=== PATIENT | male | born 1940 | race Caucasian/White ===

== ENCOUNTER 2020-12-05 10:57 | Day surgery (SDC) | payer BC ==
[2020-12-04 10:11] LABS: BASOPHILS % (AUTO) 0.8 % (0-1); EOSINOPHILS # (AUTO) 0.1 X10'3 (0-0.9); EOSINOPHILS % (AUTO) 1.8 % (0-6); HEMATOCRIT 38.7 % (42.0-52.0); HEMOGLOBIN 13.1 g/dl (14.0-17.9); LYMPHOCYTES # (AUTO) 1.2 X10'3 (1.1-4.8); LYMPHOCYTES % (AUTO) 21.1 % (21-51); MEAN CORPUSCULAR HEMOGLOBIN 30.9 PG (27.0-31.0); MEAN CORPUSCULAR VOLUME 91.1 FL (78-98); MEAN PLATELET VOLUME 6.8 FL (7.4-10.4); MONOCYTES # (AUTO) 0.5 X10'3 (0-0.9); MONOCYTES % (AUTO) 8.8 % (2-12); NEUTROPHILS # (AUTO) 3.8 X10'3 (1.8-7.7); NEUTROPHILS % (AUTO) 67.5 % (42-75); PLATELET COUNT 217 X10'3 (140-440); RED BLOOD COUNT 4.24 X10'6 (4.70-6.10); RED CELL DISTRIBUTION WIDTH 13.6 % (11.5-14.5); WHITE BLOOD COUNT 5.7 X10'3 (4.5-11.0)
[2020-12-04 10:23] LABS: PARTIAL THROMBOPLASTIN TIME 29 SECONDS (22-32)
[2020-12-04 10:48] LABS: ALANINE AMINOTRANSFERASE 38 U/L (12-78); ALBUMIN 3.9 G/DL (3.4-5.0); ALBUMIN/GLOBULIN RATIO 1.3 (1.1-1.5); ALKALINE PHOSPHATASE 42 IU/L (46-116); ANION GAP 7 (8-16); ASPARTATE AMINO TRANSFERASE 30 U/L (10-37); BILIRUBIN,TOTAL 1.2 MG/DL (0.1-1.0); BLOOD UREA NITROGEN 23 MG/DL (7-18); BUN/CREATININE RATIO 37.1 (5.4-32.0); CALCIUM 9.6 MG/DL (8.5-10.1); CHLORIDE 106 MMOL/L (99-107); CREATININE 0.62 MG/DL (0.60-1.10); GLUCOSE 108 MG/DL (70-104); POTASSIUM 4.4 MMOL/L (3.5-5.1); SODIUM 142 MMOL/L (135-145); TOTAL CARBON DIOXIDE 28.9 MMOL/L (24-32); eGFR > 90 ML/MIN
[2020-12-05] VITALS (11 sets, daily range): BP systolic 127–168; BP diastolic 56–97
[~2020-12-05] VITALS: Ht 182.9 cm; Wt 93.5 kg
[2020-12-05] MEDS ORDERED: nitroGLYCERIN 0.4mg SUBLingual tab SL PRN (11:20)
[2020-12-05] MEDS ORDERED: diphenhydrAMINE 25mg capsule PO PRN (11:20)
[2020-12-05] MEDS ORDERED: normal saline 1,000 ML IV SCH (11:20)
[2020-12-05] MEDS ORDERED: LORazepam 0.5 MG tablet PO PRN (11:20)
[2020-12-05] MEDS ORDERED: EZET10TA48 PO (11:21)
[2020-12-05] MEDS ORDERED: METF-900 PO (11:21)
[2020-12-05] MEDS ORDERED: ROSU10TA28 PO (11:21)
[2020-12-05] MEDS ORDERED: UBID100C16 PO (11:25)
[2020-12-05] MEDS ORDERED: ASCO1TAB39 PO (11:25)
[2020-12-05] MEDS ORDERED: VITA-268 PO (11:25)
[2020-12-05] MEDS ORDERED: VITAMIN E PO (11:25)
[2020-12-05] MEDS ORDERED: ASPI-611 PO (11:25)
[2020-12-05] MEDS ORDERED: midazolam 2 mg/2 ml injection ONE (11:55)
[2020-12-05] MEDS ORDERED: fentaNYL/PF 50MCG/1 ML 2ML syringe ONE (11:55)
[2020-12-05] MEDS ORDERED: iohexol 350MG/ML 100ml bottle IV ONE (11:56)
[2020-12-05] MEDS ORDERED: iohexol 350 MG/ML 50ML vial IV ONE (11:56)
[2020-12-05] MEDS ORDERED: LIDOcaine 1% (10mg/ml)w/preservative injection 20ml MDV ONE (11:56)
[2020-12-05 12:56] LABS: ISTAT HGB ART 11.9 g/dl (14.0-18.0); ISTAT Hct ART 35 %PCV (42-52); ISTAT O2 SATURATION ARTERIAL 88 % (95-98); ISTAT SOURCE ART
[2020-12-05] MEDS ORDERED: HYDROcodone/acetaminophen 10/325mg tab PO PRN (13:40)
[2020-12-05] MEDS ORDERED: OXAZEpam 15mg capsule PO PRN (13:40)
[2020-12-05] MEDS ORDERED: HYDROcodone/acetaminophen 5mg/325mg tablet PO PRN (13:40)
[2020-12-05] MEDS ORDERED: proCHLORperazine 10 MG/2 ml inj IV PRN (13:40)
[2020-12-05] MEDS ORDERED: ondansetron/PF 4mg/2ml inj IV PRN (13:40)
== END 2020-12-05 19:00 | disposition home or self-care (01) ==
LOC: SSTAY O 10:57
PROVIDERS: ATTEND Internal Medicine Cardiovascular Disease
DX: I25.10 Atherosclerotic heart disease of native coronary artery without angina pectoris (principal); Z85.51 Personal history of malignant neoplasm of bladder; Z98.890 Other specified postprocedural states; Z79.899 Other long term (current) drug therapy
CPT/HCPCS: 36415; 71046; 80053; 82803; 82948; 83036; 83880; 85014; 85025; 85610; 85730; 93460; 99152; 99153; C1760; C1769; J1644; J2001; J2250; J3010; J7030; Q0163; Q9967; A4620; A6258; C1751